=== PATIENT | female | born 1950 | race Caucasian/White ===

== ENCOUNTER 2022-04-30 11:20 | Emergency (ER) | payer MEDICARE, OTHER, SELFPAY ==
[2022-04-30] VITALS (16 sets, daily range): BP systolic 119–179; BP diastolic 59–113; PULSE 61–83; RESP 18; TEMP 36.5; O2SAT 94–100
--- NOTE | 2022-04-30 11:35 | ED_ITS ---
HPI - General Adult General Time Seen by Provider: 11:36 Date Seen: 04/30/22 Chief complaint: Shortness of Breath/Dyspnea Stated complaint: short of breath Time Seen by Provider: 04/30/22 11:29 Source: patient and RN notes reviewed Mode of arrival: ambulatory Limitations: no limitations History of Present Illness HPI narrative: Patient is a 71-year-old female coming in with primary concern of fatigue and short of breath. She started with cold symptoms on Wednesday, had more nasal congestion mild cough. She felt chest symptoms immediately and will typically feel chest heaviness with colds. Wednesday and Wednesday she was just significantly fatigued and slept most the time. Wednesday she was slightly better. Today she was feeling a bit better and went to go try to plant her mom's in the ground before froze. She had instantaneous shortness of breath, respiratory rate up to 22. The fatigue came back. She started to feel short of breath with resting respiratory rate in the 30s. She is quite concerned as she had a very significant illness in 2005. She was transferred from this facility to [facility] in respiratory distress in October of 2005. She was initially treated for bacterial pneumonia but kept getting worse. 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 The [facility] put her on prednisone for the inflammatory component. She was on oxygen for about a year. Since then she will notice with cold symptoms her chest will get heavy. She has had some chronic shortness of breath with activity such as carrying things. She has done cardiac workup for this as well. She has no known underlying cardiac disease. She does not think she has had fevers through this. Her cough has not been as bad as it has in the past with other colds. Appetite is down but no nausea vomiting or diarrhea. Related Data Home Medications Medication Instructions Recorded Confirmed omeprazole 20 mg capsule,delayed 20 mg PO DAILY 04/30/22 04/30/22 release triamterene 37.5 1 tab PO DAILY 04/30/22 04/30/22 mg-hydrochlorothiazide 25 mg tablet Previous Rx's Medication Instructions Recorded prednisone 20 mg tablet 20 mg PO BID #10 tabs 04/30/22 Allergies Allergy/AdvReac Type Severity Reaction Status Date / Time No Known Drug Allergies Allergy Verified 04/30/22 11:32 Review of Systems Status of ROS: Reports: 10 or more systems reviewed and unremarkable except as noted in History and below Exam Const: Vital Signs, click to edit/add: Vital Signs - 24 hr 04/30/22 11:28 Temperature 97.7 F Pulse Rate [Right Pulse Oximeter] 82 Respiratory Rate 18 Blood Pressure [Ri ght Upper Arm] 179/93 H Pulse Oximetry 100 Oxygen Delivery Me thod Room Air Documenting provider has reviewed patient's vital signs: yes Common normals: no apparent distress, oriented x3, no limitations, healthy appearing, alert and well nourished General appearance: cooperative, comfortable and well kempt Other: At times during discussion, is a bit tachypneic and will speak in short phrases. Other times seems to be able to talk a bit longer. While I am in with her, her O2 saturation maintains 100%. HENMT: Common normals: normocephalic, head/scalp atraumatic, hearing grossly normal bilaterally, external ears normal, external nose normal, nasal mucous membranes and turbinates normal and oropharynx normal (Outside of mildly dry mucous membranes.) Head and scalp: normocephalic and atraumatic Nose: external nose normal and nasal mucous membranes and turbinates normal External ear: external ears normal Eye: Common normals: PERRL, EOMs intact bilaterally, conjunctivae normal and no scleral icterus Conjunctiva: conjunctiva(e) normal Pupil: PERRL Neck & C-Spine: Common normals: full ROM, no lymphadenopathy, supple, no meningeal signs, no JVD and thyroid normal Thyroid: thyroid normal Chest: Common normals: inspection of chest normal and palpation of chest normal Resp: Common normals: normal respiratory effort, no retractions, no use of accessory muscles and clear to auscultation bilaterally Auscultation: clear to auscultation bilaterally Cardio: Common normals: no JVD, regular rate, regular rhythm, S1 normal heart sound, S2 normal heart sound, no gallops, no clicks, no murmurs and no rub Rate: regular rate Rhythm: regular rhythm Heart sounds: S1 normal and S2 normal GI: Common normals: Normal to inspection, nondistended, normoactive bowel sounds present, soft to palpation, non-tender, no hepatosplenomegaly and no masses Palpation: soft and no hepatosplenomegaly Back & Pelvis: Common normals: thoracic and lumbar spine normal to inspection Extremity: Common normals: normal to inspection, full ROM, no calf tenderness and no pedal edema Neuro: Common normals: oriented x3, moves all extremities, no focal motor deficits and no sensory deficits noted Sensorium/orientation: alert Meningeal signs: no meningeal signs Psych: Appearance: well kempt Course Course Hospital Course: She will be maintained on pulse oximetry and cardiac monitoring. Will obtain portable chest x-ray and EKG. Will get a full complement of labs. Certainly sounds that she started with a viral URI, could have induced sense of shortness of breath. Need to rule out infectious etiology such is pneumonia, consideration for cardiac causes her shortness of breath will be considered as well. Discussed advanced imaging and she states she has had 9 chest CTs in her life time already and was told to try to avoid them. We certainly will start with a portable chest x-ray and guide therapy accordingly. She does understand we may ultimately have to do 1. A.m. doing a D-dimer. With COVID being a possible causative etiology, need to consider the thromboembolic complications. Right now she is certainly oxygenating quite well, is hemodynamically stable. Reevaluation(s) Reevaluation #1: Reviewed with patient that her chest x-ray looks normal, labs were all looking normal outside of a minimally low potassium at 3.3. We reviewed the potassium was from her hydrochlorothiazide use. Recommend dietary supplementation and outpatient follow-up with this. May need to use oral potassium if dietary management is not adequate. She did get placed on some oxygen while here, subjectively felt better even though she was not hypoxic. She is feeling rested, was able to nap. Shortness of breath has abated. We will ambulate her here off oxygen just to ensure she is not becoming hypoxic. She is wondering about a short course of steroids. I do think I would certainly consider that, that was what I was thinking about in consideration of her clinical symptoms. She does have significant history of lung problems back in 2005. It is certainly conceivable that with some prior scarring and then some inflammation caused by a respiratory virus, that she could just need a little support. If she does have interstitial lung disease as a see listed in her chart, may need to see Pulmonary outpatient again if she has not done so in the last year so. I would agree with her requests for short course of prednisone. I do not think antibiotics are indicated nor is she requesting them. If she manages her trial of ambulation without oxygen, will discharge to home. Time: 14:15 Vital Signs Vital signs: Initial Vital Signs Temperature 97.7 F 04/30/22 11:28 Temperature Source Temporal Artery Scan 04/30/22 11:28 Pulse Rate 82 04/30/22 11:28 Respiratory Rate 18 04/30/22 11:28 Blood Pressure 179/93 H 04/30/22 11:28 Blood Pressure Mean 121 04/30/22 11:28 Blood Pressure Position Sitting 04/30/22 11:28 Pulse Oximetry 100 04/30/22 11:28 Oxygen Delivery Method 04/30/22 11:28 Vital Signs Temperature 97.7 F 04/30/22 11:28 Pulse Rate 82 04/30/22 11:28 Respiratory Rate 18 04/30/22 11:28 Blood Pressure 179/93 H 04/30/22 11:28 Pulse Oximetry 100 04/30/22 11:28 Oxygen Delivery Method 04/30/22 11:28 Temperature 97.7 F 04/30/22 11:28 Pulse Rate 82 04/30/22 11:28 Respiratory Rate 18 04/30/22 11:28 Blood Pressure 179/93 H 04/30/22 11:28 Pulse Oximetry 100 04/30/22 11:28 Oxygen Delivery Method 04/30/22 11:28 Medical Decision Making Lab Data Labs: Lab Results 04/30/22 04/30/22 04/30/22 Range/Units 11:51 11:51 12:17 WBC 5.16 (4.50-11.00) K/uL RBC 5.28 H (4.00-5.20) m/uL Hgb 15.5 (12.0-16.0) gm/dL Hct 47.1 (33.0-51.0) % MCV 89 (80-100) fL MCH 29 (26-34) pg MCHC 33 (32-36) gm/dL RDW Coeff of Reymundo 12.8 (11.5-15.5) % Plt Count 229 (140-440) K/uL Neut % (Auto) 64.8 (42.0-72.0) % Lymph % (Auto) 26.2 (20-44) % [place] % (Auto) 6.8 (0.0-11.0) % Eos % (Auto) 1.0 (0.0-7.0) % Baso % (Auto) 0.6 (0.0-3.0) % Neut # (Auto) 3.35 (1.7-7.0) K/uL Lymph # (Auto) 1.35 (0.90-2.90) K/uL [place] # (Auto) 0.40 (0.00-0.90) K/UL Eos # (Auto) 0.05 (0.00-0.50) K/uL Baso # (Auto) 0.03 (0.00-0.30) K/uL Abs Immat Gran (auto) 0.03 (0.00-0.30) K/uL Imm/Tot Granulo (auto) 0.6 % D-Dimer Quant (PE/DVT) (0.00-0.50) ug/ml VBG pH (7.32-7.43) VBG pCO2 (40-50) mmHG VBG pO2 (25-47) mmHG VBG HCO3 (21-28) mmol/L Sodium (135-149) mmol/L Potassium (3.6-5.1) mmol/L Chloride (96-114) mmol/L Carbon Dioxide (20-32) mmol/L BUN (7-30) mg/dL Creatinine (0.5-1.5) mg/dL Estimated GFR ml/min Glucose (60-115) mg/dL Calcium (8.4-10.6) mg/dL Total Bilirubin (0.1-1.5) mg/dL AST (12-35) U/L ALT (4-35) U/L Alkaline Phosphatase (40-150) U/L C-Reactive Protein (0.5-1.0) mg/dL NT-Pro-B Natriuret Pep (0-125) PG/mL Total Protein (6.0-8.3) g/dL Albumin (3.3-5.0) g/dL SARS-CoV-2 (PCR) Negative SARS-CoV-2 (Negative) Influenza Type A (PCR) Negative PCR FLU A (Negative) Influenza Type B (PCR) Negative PCR FLU B (Negative) RSV (PCR) Negative PCR RSV (Negative) POC Troponin I 0.00 L (0.01-0.04) ng/ml 04/30/22 04/30/22 04/30/22 Range/Units 12:17 12:17 12:17 WBC (4.50-11.00) K/uL RBC (4.00-5.20) m/uL Hgb (12.0-16.0) gm/dL Hct (33.0-51.0) % MCV (80-100) fL MCH (26-34) pg MCHC (32-36) gm/dL RDW Coeff of Reymundo (11.5-15.5) % Plt Count (140-440) K/uL Neut % (Auto) (42.0-72.0) % Lymph % (Auto) (20-44) % [place] % (Auto) (0.0-11.0) % Eos % (Auto) (0.0-7.0) % Baso % (Auto) (0.0-3.0) % Neut # (Auto) (1.7-7.0) K/uL Lymph # (Auto) (0.90-2.90) K/uL [place] # (Auto) (0.00-0.90) K/UL Eos # (Auto) (0.00-0.50) K/uL Baso # (Auto) (0.00-0.30) K/uL Abs Immat Gran (auto) (0.00-0.30) K/uL Imm/Tot Granulo (auto) % D-Dimer Quant (PE/DVT) 0.41 (0.00-0.50) ug/ml VBG pH 7.401 (7.32-7.43) VBG pCO2 49 (40-50) mmHG VBG pO2 30.7 (25-47) mmHG VBG HCO3 30 H (21-28) mmol/L Sodium 139 (135-149) mmol/L Potassium 3.3 L (3.6-5.1) mmol/L Chloride 99 (96-114) mmol/L Carbon Dioxide 26 (20-32) mmol/L BUN 22 (7-30) mg/dL Creatinine 0.8 (0.5-1.5) mg/dL Estimated GFR 80 ml/min Glucose 109 (60-115) mg/dL Calcium 9.4 (8.4-10.6) mg/dL Total Bilirubin 0.6 (0.1-1.5) mg/dL AST 27 (12-35) U/L ALT 28 (4-35) U/L Alkaline Phosphatase 91 (40-150) U/L C-Reactive Protein 1.8 H (0.5-1.0) mg/dL NT-Pro-B Natriuret Pep 58 (0-125) PG/mL Total Protein 7.8 (6.0-8.3) g/dL Albumin 4.7 (3.3-5.0) g/dL SARS-CoV-2 (PCR) (Negative) Influenza Type A (PCR) (Negative) Influenza Type B (PCR) (Negative) RSV (PCR) (Negative) POC Troponin I (0.01-0.04) ng/ml Imaging Data Chest x-ray: Attestation: I have reviewed the pertinent imaging results. My impression: I see no acute cardiopulmonary change on my preliminary read of this chest x- ray. Radiologist's impression: Patient: SOHAM ZURITA Facility:?[facility] Patient ID:?[id number] Site Patient ID:?[id number]. Site :?[id number] Study:?XRay Chest 1 VIEW PORTABLE-04/30/2022 12:30:16 PM Ordering Physician:Harriett Mueller Final Report: INDICATION: Dyspnea COMPARISON: January 04, 2013 TECHNIQUE: Single-view examination FINDINGS: TUBES AND LINES: None. HEART AND MEDIASTINUM: The heart size is normal. The mediastinal contour appears normal for patient age. LUNGS AND PLEURAL SPACES: No acute findings. Incidental findings of remote granulomatous infection, unchanged.The pleural spaces are unremarkable. OSSEOUS STRUCTURES: Age-appropriate appearance. No acute focal finding. IMPRESSION: No evidence of active pulmonary disease. Incidental findings of remote granulomatous infection. Dictated by Nate Russ MD @ 04/30/2022 1:02:23 PM (Electronic Signature) ECG Data Attestation: I personally reviewed and interpreted this ECG as follows: (Sinus rhythm, 78 beats per minute, QT corrected 451 milliseconds. No ischemia noted.) Discharge Plan Discharge Clinical Impression: Shortness of breath, Upper respiratory infection, viral Patient Disposition: Home, Self-Care Condition: Stable Instructions: Potassium Content of Foods List (ED), Upper Respiratory Infection (ED), Shortness of Breath (ED) Additional Instructions: Try the prednisone, 20 mg twice a day x5 days, and see if it helps alleviate some of your symptoms. If you have not seen filler in within the last year, would recommend follow-up. Review with them whether or not they feel that pulmonary function studies would be helpful for you. If you develop worsening or progressive symptoms, please seek re-evaluation. Potassium was just mildly low, is likely due to your diuretic you take. Try a to supplement with more potassium through foods in your diet. Review handout. Do recommend recheck with your primary care provider within the next 1-2 weeks, should have potassium rechecked too. Activity Level: Activity as Tolerated Prescriptions: New prednisone 20 mg tablet 20 mg PO BID Qty: 10 0RF No Action omeprazole 20 mg capsule,delayed release(DR/EC) 20 mg PO DAILY triamterene-hydrochlorothiazid 37.5-25 mg tablet 1 tab PO DAILY Stand Alone Forms: [employer] Info Instructions
--- NOTE | 2022-04-30 11:50 | CRLHL7_ITS ---
For Patients: As a result of the Cures Act, medical imaging exams and procedure reports are released immediately into your electronic medical record. You may view this report before your referring provider. If you have questions, please contact your health care provider. INDICATION: Dyspnea COMPARISON: January 04, 2013 TECHNIQUE: Single-view examination FINDINGS: TUBES AND LINES: None. HEART AND MEDIASTINUM: The heart size is normal. The mediastinal contour appears normal for patient age. LUNGS AND PLEURAL SPACES: No acute findings. Incidental findings of remote granulomatous infection, unchanged.The pleural spaces are unremarkable. OSSEOUS STRUCTURES: Age-appropriate appearance. No acute focal finding. IMPRESSION: No evidence of active pulmonary disease. Incidental findings of remote granulomatous infection. Dictated by Nate Russ MD @ 04/30/2022 1:02:23 PM (Electronically Signed)
[2022-04-30 12:31] LABS: HCO3 VBG 30 mmol/L (21-28); PCO2 VBG 49 mmHG (40-50); PO2 VBG 30.7 mmHG (25-47); pH VBG 7.401 (7.32-7.43)
[2022-04-30 12:54] LABS: Basophils Absolute Auto 0.03 K/uL (0.00-0.30); Basophils Percent Auto 0.6 % (0.0-3.0); D Dimer Quantitative* 0.41 ug/ml (0.00-0.50); Eosinophils Absolute Auto 0.05 K/uL (0.00-0.50); Hematocrit 47.1 % (33.0-51.0); Hemoglobin* 15.5 gm/dL (12.0-16.0); Immature Granulocytes Abs Auto 0.03 K/uL (0.00-0.30); Immature Granulocytes Pct Auto 0.6 %; Lymphocytes Absolute Auto 1.35 K/uL (0.90-2.90); Lymphocytes Percent Auto 26.2 % (20-44); Mean Corpuscular HGB Conc 33 gm/dL (32-36); Mean Corpuscular Hemoglobin 29 pg (26-34); Mean Corpuscular Volume 89 fL (80-100); Monocytes Percent Auto 6.8 % (0.0-11.0); Neutrophils Absolute Auto 3.35 K/uL (1.7-7.0); Neutrophils Percent Auto 64.8 % (42.0-72.0); Platelet Count* 229 K/uL (140-440); RDW Coefficient of Variation % 12.8 % (11.5-15.5); Red Blood Count 5.28 m/uL (4.00-5.20); White Blood Count* 5.16 K/uL (4.50-11.00)
[2022-04-30 12:58] LABS: Slide Review Reflex No
[2022-04-30 12:58] LABS: PCR FLU A Negative PCR FLU A (Negative); PCR FLU B Negative PCR FLU B (Negative); PCR RSV Negative PCR RSV (Negative)
[2022-04-30 13:00] LABS: Albumin* 4.7 g/dL (3.3-5.0); Chloride* 99 mmol/L (96-114); Sodium* 139 mmol/L (135-149)
[2022-04-30 13:01] LABS: Potassium* 3.3 mmol/L (3.6-5.1)
[2022-04-30 13:03] LABS: Alanine Aminotransferase* 28 U/L (4-35); Alkaline Phosphatase* 91 U/L (40-150); Aspartate Amino Transferase* 27 U/L (12-35); Bilirubin Total* 0.6 mg/dL (0.1-1.5); Blood Urea Nitrogen* 22 mg/dL (7-30); Carbon Dioxide* 26 mmol/L (20-32); Creatinine* 0.8 mg/dL (0.5-1.5); Estimated Glomerular Filt Rate 80 ml/min; Glucose* 109 mg/dL (60-115); Total Protein* 7.8 g/dL (6.0-8.3)
[2022-04-30 13:04] LABS: Calcium* 9.4 mg/dL (8.4-10.6)
[2022-04-30 13:06] LABS: C Reactive Protein* 1.8 mg/dL (0.5-1.0)
[2022-04-30 13:12] LABS: NT Pro B Type NatriureticPept* 58 PG/mL (0-125)
[2022-04-30 13:16] LABS: SARS PCR* Negative SARS-CoV-2 (Negative)
== END 2022-04-30 15:25 | disposition home or self-care (01) ==
PROVIDERS: Emergency Provider Family Medicine; PCP Family Medicine
DX: R06.02 Shortness of breath (principal); J06.9 Acute upper respiratory infection, unspecified
CPT/HCPCS: 36415; 71045; 80053; 82803; 83880; 85025; 85379; 86140; 87502; 87634; 87635; 93005; 94761; 99284

== ENCOUNTER 2025-01-10 07:58 | Outpatient (CLI) | payer MEDICARE, OTHER, SELFPAY ==
--- NOTE | 2025-01-10 08:15 | CRLHL7_ITS ---
For Patients: As a result of the Century Cures Act, medical imaging exams and procedure reports are released immediately into your electronic medical record. You may view this report before your referring provider. If you have questions, please contact your health care provider. PROCEDURE PERFORMED: Right thyroid FNA for thyroid nodule. INDICATION: Thyroid nodule. FINDINGS: Right inferior thyroid nodule 2.8 centimeters recommend FNA PROCEDURE: The risks and benefits of the procedure were explained to the patient and questions were answered. Consent was obtained. The skin was prepped in the usual sterile fashion. Under ultrasound guidance, 6 passes of the mass were performed with 25-gauge needles. The specimens were collected and sent to the lab for further analysis. The patient tolerated the procedure well without complications. Wound care was discussed with the patient and the patient was instructed to watch for signs of bleeding and infection after discharge. The patient will call a primary care physician if any problems develop. POST-PROCEDURE DIAGNOSIS: Status post right thyroid FNA for thyroid nodule. MEDICATIONS GIVEN: Lidocaine for local anesthesia. SPECIMEN(S): Six specimens collected and sent to lab for further analysis. COMPLICATIONS: No complications noted. DRAINS: None. ESTIMATED BLOOD LOSS: Less than 10 cc. PHYSICIAN(S) AND ASSISTANTS (if any): ASHLEY Fofana Please call with questions. ASHLEY Fofana ADDITIONAL COMMENTS: Ultrasound imaging was reviewed following FNA procedure. There is no signs of extravasation, hematoma, active bleeding. [place] Protocol A. Pre-procedure verification complete: Yes 1-relevant information / documentation available, reviewed and properly matched to the patient; 2-consent accurate and complete, 3-equipment and supplies available. B. Site marking complete: Yes Site marked if not in continuous attendance with patient. C. TIME OUT completed: Yes Time Out was conducted just prior to starting procedure to verify the eight required elements: 1-patient identity, 2-consent accurate and complete, 3-position, 4-correct side/site marked (if applicable), 5-procedure, 6-relevant images / results properly labeled and displayed (if applicable), 7-antibiotics / irrigation fluids (if applicable), 8-safety precautions. Dictated by Fernando Mello MD @ 01/10/2025 9:15:10 AM (Electronically Signed)
== END 2025-01-10 07:59 | disposition home or self-care (01) ==
PROVIDERS: PCP Family Medicine; Visit Provider Family Medicine
DX: E04.1 Nontoxic single thyroid nodule (principal)
CPT/HCPCS: 10005; 76942; 88173